=== PATIENT | male | born 1960 | race African-American/Black ===

== ENCOUNTER 2021-12-06 05:27 | Day surgery (SDC) | payer BC ==
[2021-12-03 13:59] VITALS: BMI 31.0
[2021-12-04 06:08] LABS: SARS-CoV-2 NAA Not Detected (Not Detected)
[2021-12-06 10:23] VITALS: TEMP 97.7
[2021-12-06 10:48] VITALS: BP 92/64; PULSE 87
== END 2021-12-06 11:30 | disposition home or self-care (01) ==
LOC: JASU-ENDO 05:27
PROVIDERS: ATTEND Internal Medicine Gastroenterology
PROC: 0DJD8ZZ Inspection of Lower Intestinal Tract, Via Natural or Artificial Opening Endoscopic (ICD-10-PCS; principal; 2021-12-06 10:00)
DX: Z12.11 Encounter for screening for malignant neoplasm of colon (principal); K64.8 Other hemorrhoids; Z86.010 Personal history of colon polyps
CPT/HCPCS: C9803-CS; U0003; U0005